=== PATIENT | female | born 1945 | race Caucasian/White ===

== ENCOUNTER → 2016-11-15 | Outpatient (CLI) | payer MEDICARE, BC ==
--- NOTE | 2016-11-16 07:44 | BD ---
EXAMINATION TYPE: MG DEXA axial skeleton. DATE OF EXAM: 11/15/2016 COMPARISON: 01.14.2013 CLINICAL HISTORY: [id number] OSTEOPOROSIS Height: 58 INCHES Weight: 171 LBS FRAX RISK QUESTIONS: Alcohol (3 or more units per day): NONE Family History (Parent hip fracture): NO Glucocorticoids (More than 3mos): NO (Ex: prednisone, prednisolone, methylprednisolone, dexamethasone, and hydrocortisone). History of Fracture in Adulthood: NO Secondary Osteoporosis: NO 1. Type 1 Diabetes: NO 2. Hyperthyroidism: NO 3. Menopause before 45: NO 4. Malnutrition: NO 5. Chronic liver disease: NO Rheumatoid Arthritis: NO Current Tobacco Use: NO RISK FACTORS HISTORY OF: Family History of Osteoporosis: NONE KNOW Active: YES Diet low in dairy products/other sources of calcium: NO Postmenopausal woman: YES AT AGE 49 Lost more than 2 inches in height since high school: YES Hyperparathyroidism: NO Adrenal Insufficiency: NO MEDICATIONS: Prednisone or other steroids: NO Thyroid Medications: NO Additional Medications: BP MEDS, ORAL DIABETIC MEDS, STATINS FOR CHOLESTEROL, Additional History: DIABETIC, OSTEOARTHRITIS, TOTAL KNEE REPLACEMENT EXAM MEASUREMENTS: Bone mineral densitometry was performed using the [employer] System. Bone mineral density as measured about the Lumbar spine is: ----- L1-L4(G/cm2): 1.139 T Score Values are as follows: ----- L1: -0.7 ----- L2: -1.3 ----- L3: 0.5 ----- L4: -0.2 ----- L1-L4: -0.3 Bone mineral density has: Decreased -0.9% since study of: 01.14.2013 Bone mineral density about the R hip (g/cm2): 1.122 Bone mineral density about the L hip (g/cm2): 1.096 T Score values are as follows: -----R Neck: 0.9 -----L Neck: 0.1 -----R Total: 0.9 -----L Total: 0.7 Bone mineral density has: Decreased -2.4% since study of: 01.14.2013 FRAX %'S: THERE IS A 6.7% CHANCE OF A MAJOR OSTEOPOROTIC FX AND A 0.4% CHANCE OF A HIP FX.....PROB ABILITY OF A FX IN 10 YRS TIME IMPRESSION: OSTEOPENIA (Values between -1 and -2.5 indicate normal bone mass). Consider repeating this study in 5 years or sooner if there is some new clinical indication MAJOR OSTEOPOROTIC FRACTURE RISK: 6.7% HIP FRACTURE RISK: 0.4% NOTE: T-SCORE=SD OF THE YOUNG ADULT MEAN.
--- NOTE | 2016-11-19 07:11 | MM ---
Reason for exam: screening (asymptomatic). Last mammogram was performed 3 years and 10 months ago. History: Patient is postmenopausal. Family history of breast cancer in paternal aunt. Physical Findings: A clinical breast exam by your physician is recommended on an annual basis and results should be correlated with mammographic findings. MG 3D Screening Mammo W/Cad Bilateral CC and MLO view(s) were taken. Prior study comparison: January 14, 2013, bilateral digital screening mammo w/CAD. The breast tissue is heterogeneously dense. This may lower the sensitivity of mammography. Stable regional calcifications upper outer quadrant left breast. Nodularity within the anterior lower inner quadrant of the left breast is more apparent. This is suspected to be on the basis of partial obscuration from a mole and mole marker on prior exam. Six month follow up is recommended. ASSESSMENT: Probably benign, BI-RAD 3 RECOMMENDATION: Follow-up diagnostic mammogram of the left breast in 6 months.
== END | disposition home or self-care (01) ==
LOC: RADMAMWWP 15:02
PROVIDERS: ATTEND Family Medicine
DX: Z12.31 Encounter for screening mammogram for malignant neoplasm of breast (principal); Z13.820 Encounter for screening for osteoporosis; M85.80 Other specified disorders of bone density and structure, unspecified site
CPT/HCPCS: 77080; 77063; G0202

== ENCOUNTER 2017-02-18 06:02 | Emergency (ER) | payer MEDICARE, BC ==
--- NOTE | 2017-02-18 06:15 | ED ---
Nausea/Vomiting/Diarrhea HPI - General Stated complaint: vomiting Time Seen by Provider: 02/18/17 06:09 Source: patient, EMS Mode of arrival: EMS Limitations: no limitations - History of Present Illness Initial comments: This patient is a 71-year-old woman coming by EMS to be evaluate for nausea and vomiting. The patient states that she had been feeling about her usual self when she went to bed last night. She woke after 3:30 this morning and then had a number of episodes of vomiting. When the symptoms were continuing they called EMS. The patient states she was also feeling short of breath, but that that has resolved now. The patient had an IV started and received a dose of ondansetron, 4 mg. The patient has denied any abdominal pain earlier or now. She denies chest pain. No diaphoresis. She states that her last bowel movement was this morning and then it was pretty much normal. No change in urination. MD complaint: nausea, vomiting Onset/Timin -: hour(s) Description of Vomiting: food contents Associated Abdominal Pain: No Consistency: now resolved Improves with: none Worsens with: none Associated Symptoms: shortness of breath - Related Data Home Medications Medication Instructions Recorded Confirmed Aspirin EC [Ecotrin Low Dose] 81 mg PO HS 02/18/17 02/18/17 Benazepril HCl [Lotensin] 20 mg PO HS 02/18/17 02/18/17 Fexofenadine/Pseudoephedrine 1 tab PO DAILY 02/18/17 02/18/17 [Teressa-D 24 Hour Tablet] Glimepiride [Amaryl] 4 mg PO [id number] 02/18/17 02/18/17 Simvastatin [Zocor] 20 mg PO HS 02/18/17 02/18/17 Warfarin [Coumadin] 5 mg PO SUMOTH 02/18/17 02/18/17 Warfarin [Coumadin] 7.5 mg PO [id number] 02/18/17 02/18/17 amLODIPine [Norvasc] 10 mg PO HS 02/18/17 02/18/17 metFORMIN HCL [Glucophage] 1,000 mg PO BID 02/18/17 02/18/17 sitaGLIPtin [Januvia] 100 mg PO DAILY 02/18/17 02/18/17 Previous Rx's Medication Instructions Recorded Ondansetron Odt [Zofran ODT] 4 mg PO Q8HR PRN #10 tab 02/18/17 Allergies Allergy/AdvReac Type Severity Reaction Status Date / Time sulfamethoxazole AdvReac Intermediate Nausea & Verified 02/18/17 07:56 [From Bactrim] Vomiting trimethoprim [From Bactrim] AdvReac Intermediate Nausea & Verified 02/18/17 07: 56 Vomiting Review of Systems ROS Statement: Those systems with pertinent positive or pertinent negative responses have been documented in the HPI. ROS Other: All systems not noted in ROS Statement are negative. Constitutional: Denies: fever, chills Respiratory: Denies: cough, dyspnea Cardiovascular: Denies: chest pain, palpitations, edema, syncope Gastrointestinal: Reports: nausea, vomiting. Denies: abdominal pain, diarrhea, hematemesis, melena, hematochezia Genitourinary: Denies: dysuria, hematuria Musculoskeletal: Denies: back pain Skin: Denies: rash Neurological: Denies: headache, weakness, numbness Past Medical History Past Medical History: Diabetes Mellitus, Hypertension History of Any Multi-Drug Resistant Organisms: None Reported Past Surgical History: Adenoidectomy, Appendectomy, Cholecystectomy, Hernia Repair, Tonsillectomy Past Psychological History: No Psychological Hx Reported Smoking Status: Former smoker Past Alcohol Use History: None Reported Past Drug Use History: None Reported General Exam Limitations: no limitations General appearance: alert, in no apparent distress Head exam: Present: atraumatic, normocephalic Eye exam: Present: normal appearance. Absent: scleral icterus, conjunctival injection Respiratory exam: Present: normal lung sounds bilaterally. Absent: respiratory distress, wheezes, rales, rhonchi, stridor Cardiovascular Exam: Present: regular rate, normal rhythm, normal heart sounds. Absent: systolic murmur, diastolic murmur, rubs, gallop GI/Abdominal exam: Present: soft, distended. Absent: tenderness, guarding, rebound, mass Extremities exam: Present: normal inspection, normal capillary refill. Absent: pedal edema, calf tenderness Back exam: Absent: CVA tenderness (R), CVA tenderness (L) Neurological exam: Present: alert Skin exam: Present: warm, dry, intact, normal color. Absent: rash, cyanosis, diaphoretic, erythema, petechiae, pallor, mottled Course Vital Signs 02/18/17 06:04 Temperature 97.0 F L Pulse Rate 77 Respiratory 18 Rate Blood Pressure 176/74 O2 Sat by Pulse 97 Oximetry Medical Decision Making - Lab Data Result diagrams: 02/18/17 06:08 02/18/17 06:08 Lab Results 02/18/17 02/18/17 02/18/17 Range/Units 06:08 06:08 06:08 WBC 8.3 (3.8-10.6) k/uL RBC 4.30 (3.80-5.40) m/uL Hgb 12.1 (11.4-16.0) gm/dL Hct 37.8 (34.0-46.0) % MCV 87.8 (80.0-100.0) fL MCH 28.2 (25.0-35.0) pg MCHC 32.1 (31.0-37.0) g/dL RDW 16.0 H (11.5-15.5) % Plt Count 223 (150-450) k/uL Neutrophils % 69 % Lymphocytes % 13 % Monocytes % 6 % Eosinophils % 9 % Basophils % 1 % Neutrophils # 5.7 (1.3-7.7) k/uL Lymphocytes # 1.1 (1.0-4.8) k/uL Monocytes # 0.5 (0-1.0) k/uL Eosinophils # 0.7 (0-0.7) k/uL Basophils # 0.1 (0-0.2) k/uL Hypochromasia Slight Anisocytosis Slight Sodium 139 (137-145) mmol/L Potassium 4.6 (3.5-5.1) mmol/L Chloride 105 (98-107) mmol/L Carbon Dioxide 21 L (22-30) mmol/L Anion Gap 13 mmol/L BUN 17 (7-17) mg/dL Creatinine 0.75 (0.52-1.04) mg/dL Est GFR (MDRD) Af Amer >60 (>60 ml/min/1.73 sqM) Est GFR (MDRD) Non-Af >60 (>60 ml/min/1.73 sqM) Glucose 206 H (74-99) mg/dL Calcium 8.9 (8.4-10.2) mg/dL Total Bilirubin 0.2 (0.2-1.3) mg/dL AST 24 (14-36) U/L ALT 42 (9-52) U/L Alkaline Phosphatase 71 (38-126) U/L Troponin I <0.012 (0.000-0.034) ng/mL Total Protein 7.2 (6.3-8.2) g/dL Albumin 4.0 (3.5-5.0) g/dL Amylase 40 (30-110) U/L Lipase 79 (23-300) U/L Urine Color Urine Appearance (Clear) Urine pH (5.0-8.0) Ur Specific [place] (1.001-1.035) Urine Protein (Negative) Urine Glucose (UA) (Negative) Urine Ketones (Negative) Urine Blood (Negative) Urine Nitrite (Negative) Urine Bilirubin (Negative) Urine Urobilinogen (<2.0) mg/dL Ur Leukocyte Esterase (Negative) 02/18/17 Range/Units 06:30 WBC (3.8-10.6) k/uL RBC (3.80-5.40) m/uL Hgb (11.4-16.0) gm/dL Hct (34.0-46.0) % MCV (80.0-100.0) fL MCH (25.0-35.0) pg MCHC (31.0-37.0) g/dL RDW (11.5-15.5) % Plt Count (150-450) k/uL Neutrophils % % Lymphocytes % % Monocytes % % Eosinophils % % Basophils % % Neutrophils # (1.3-7.7) k/uL Lymphocytes # (1.0-4.8) k/uL Monocytes # (0-1.0) k/uL Eosinophils # (0-0.7) k/uL Basophils # (0-0.2) k/uL Hypochromasia Anisocytosis Sodium (137-145) mmol/L Potassium (3.5-5.1) mmol/L Chloride (98-107) mmol/L Carbon Dioxide (22-30) mmol/L Anion Gap mmol/L BUN (7-17) mg/dL Creatinine (0.52-1.04) mg/dL Est GFR (MDRD) Af Amer (>60 ml/min/1.73 sqM) Est GFR (MDRD) Non-Af (>60 ml/min/1.73 sqM) Glucose (74-99) mg/dL Calcium (8.4-10.2) mg/dL Total Bilirubin (0.2-1.3) mg/dL AST (14-36) U/L ALT (9-52) U/L Alkaline Phosphatase (38-126) U/L Troponin I (0.000-0.034) ng/mL Total Protein (6.3-8.2) g/dL Albumin (3.5-5.0) g/dL Amylase (30-110) U/L Lipase (23-300) U/L Urine Color Colorless Urine Appearance Clear (Clear) Urine pH 6.5 (5.0-8.0) Ur Specific [place] 1.008 (1.001-1.035) Urine Protein Negative (Negative) Urine Glucose (UA) 2+ H (Negative) Urine Ketones Negative (Negative) Urine Blood Negative (Negative) Urine Nitrite Negative (Negative) Urine Bilirubin Negative (Negative) Urine Urobilinogen <2.0 (<2.0) mg/dL Ur Leukocyte Esterase Negative (Negative) - EKG Data -: EKG Interpreted by [facility] EKG shows normal: sinus rhythm, axis (Normal), intervals (Normal normal), QRS complexes (Normal), ST-T waves (Normal) Rate: normal (Rate 78 bpm) Interpretation: normal EKG Disposition Clinical Impression: Vomiting Disposition: HOME SELF-CARE Condition: Fair Instructions: Acute Nausea and Vomiting (ED) Prescriptions: Ondansetron Odt [Zofran ODT] 4 mg PO Q8HR PRN #10 tab PRN Reason: Nausea Referrals: Nella Dougherty DO [Primary Care Provider] - 1-2 days
[2017-02-18 06:24] LABS: Anisocytosis Slight; Basophils # (A) 0.1 k/uL (0-0.2); Basophils % (A) 1 %; CH 27.9; Eosinophils # (A) 0.7 k/uL (0-0.7); Eosinophils % (A) 9 %; HCT 37.8 % (34.0-46.0); HDW 3.06; HGB 12.1 gm/dL (11.4-16.0); Hypochromasia Slight; Luc # (Auto) 0.18; Luc % (Auto) 2; Lymphocytes # (A) 1.1 k/uL (1.0-4.8); Lymphocytes % (A) 13 %; MCH 28.2 pg (25.0-35.0); MCHC 32.1 g/dL (31.0-37.0); MCV 87.8 fL (80.0-100.0); Mean Platelet Volume 7.8; Monocytes # (A) 0.5 k/uL (0-1.0); Monocytes % (A) 6 %; Neutrophils # (A) 5.7 k/uL (1.3-7.7); Neutrophils % (A) 69 %; WBC 8.3 k/uL (3.8-10.6); WBC (Perox) 8.75
[2017-02-18 06:36] LABS: ALT 42 U/L (9-52); AST 24 U/L (14-36); Alkaline Phosphatase 71 U/L (38-126); Amylase 40 U/L (30-110); Anion Gap 13 mmol/L; Blood Urea Nitrogen 17 mg/dL (7-17); Calcium 8.9 mg/dL (8.4-10.2); Carbon Dioxide 21 mmol/L (22-30); Chloride 105 mmol/L (98-107); Glucose 206 mg/dL (74-99); Non-African American GFR(MDRD) >60 (>60 ml/min/1.73 sqM); Potassium 4.6 mmol/L (3.5-5.1); Sodium 139 mmol/L (137-145); Total Bilirubin 0.2 mg/dL (0.2-1.3); Total Protein 7.2 g/dL (6.3-8.2)
[2017-02-18 06:40] LABS: Appearance,Urine Clear (Clear); Bilirubin,Urine Negative (Negative); Glucose,Urine (UA) 2+ (Negative); Ketones,Urine Negative (Negative); Leukocyte Esterase,Urine Negative (Negative); Nitrite,Urine Negative (Negative); PH, Urine 6.5 (5.0-8.0); Protein,Urine Negative (Negative); Specific Gravity,Urine 1.008 (1.001-1.035); UA Billing (MACRO vs. MICRO) CHEM; Urobilinogen,Urine <2.0 mg/dL (<2.0)
[2017-02-18] MEDS ORDERED: NALOXONE 0.4 MG/ML 1 ML VIAL IV PRN (07:41)
[2017-02-18] MEDS ORDERED: ONDANSETRON 4 MG/2 ML VIAL IVP PRN (07:41)
[2017-02-18] MEDS ORDERED: SODIUM CHLORIDE 0.9% 1,000 ML IV SCH (07:45)
--- NOTE | 2017-02-18 07:52 | XR ---
EXAMINATION TYPE: XR abdomen acute with chest x-ray DATE OF EXAM: 02/18/2017 COMPARISON: NONE HISTORY: 71-year-old female dizziness and vomiting TECHNIQUE: Supine, upright, and left side down lateral decubitus views of the abdomen are obtained. FINDINGS: Heart is normal size. Aorta and pulmonary vasculature within normal limits. There is some strandy-slime earing right basilar opacity. No pleural effusion. No evidence for free intraperitoneal air. No dilated small bowel or differential air-fluid levels. There may be a single air-fluid level in the gastric antrum versus the transverse colon. Mild stool burden. Pelvic phleboliths particularly on the left. IMPRESSION: 1. Some strandy atelectasis or early infiltrate at the right base. 2. No evidence for bowel obstruction or free air. 3. A single air-fluid level in the gastric antrum versus the transverse colon could be transient or c ould represent gastritis/enteritis or a mild regional ileus.
[2017-02-18 08:38] VITALS: BP 164/7; PULSE 71; RESP 17; TEMP 96.9
[2017-02-18] MEDS ORDERED: FAMOTIDINE 20 MG TAB PO SCH (09:00)
== END 2017-02-18 08:36 | disposition home or self-care (01) ==
LOC: EC 06:02
DX: R11.10 Vomiting, unspecified (principal); R06.02 Shortness of breath; E11.9 Type 2 diabetes mellitus without complications; I10 Essential (primary) hypertension; Z53.8 Procedure and treatment not carried out for other reasons; Z98.890 Other specified postprocedural states; Z90.49 Acquired absence of other specified parts of digestive tract; Z87.891 Personal history of nicotine dependence; Z88.2 Allergy status to sulfonamides; Z79.01 Long term (current) use of anticoagulants; Z79.84 Long term (current) use of oral hypoglycemic drugs; Z79.82 Long term (current) use of aspirin; Z79.899 Other long term (current) drug therapy
CPT/HCPCS: 36415; 74022; 80053; 81003; 82150; 83690; 84484; 85025; 93005; 99284